=== PATIENT | female | born 1950 | race Caucasian/White ===

== ENCOUNTER → 2019-08-21 08:00 | Outpatient (CLI) | payer MEDICARE | END | disposition home or self-care (01) | LOC: D.MAMMO 08:00 | PROVIDERS: ATTEND Internal Medicine | DX: Z12.31 Encounter for screening mammogram for malignant neoplasm of breast (principal) ==

== ENCOUNTER → 2019-09-15 10:18 | Outpatient (CLI) | payer MEDICARE | END | disposition home or self-care (01) | LOC: D.US 10:18 | PROVIDERS: ATTEND Internal Medicine | DX: R92.8 Other abnormal and inconclusive findings on diagnostic imaging of breast (principal); N63.21 Unspecified lump in the left breast, upper outer quadrant ==

== ENCOUNTER 2020-03-24 14:00 | Outpatient (CLI) | payer MEDICARE | END 2020-03-24 23:59 | disposition home or self-care (01) | LOC: D.MAMMO 14:00 | PROVIDERS: ATTEND Internal Medicine | DX: R92.8 Other abnormal and inconclusive findings on diagnostic imaging of breast (principal) ==